=== PATIENT | female | born 1990 | race Two or more races ===

== ENCOUNTER 2020-08-30 02:38 | Emergency (ER) | payer MEDICAID ==
[~2020-08-30] VITALS: Ht 154.9 cm; Wt 54.4 kg
[2020-08-30 03:03] VITALS: BP 118/86
[2020-08-30] MEDS ORDERED: cefTRIAXone SOD 1,000 MG VL IM ONE (04:30)
[2020-08-30] MEDS ORDERED: ACETAMINOPHEN 325 MG TAB PO ONE (04:45)
== END 2020-08-30 05:01 | disposition home or self-care (01) ==
LOC: ER 02:41
DX: J06.9 Acute upper respiratory infection, unspecified (principal); Z20.828 Contact with and (suspected) exposure to other viral communicable diseases
CPT/HCPCS: 36415; 87426; 87880; 96372; 99283; J0696